=== PATIENT | male | born 1960 | race Caucasian/White ===

== ENCOUNTER → 2024-01-24 11:24 | Outpatient (CLI) | payer OTHER, SELFPAY ==
--- NOTE | 2024-01-24 11:35 | DI.RAD.S_ITS ---
PROCEDURE: XR HIP W PEL IF DONE RT 2V INDICATIONS: ARTHRITIS TECHNIQUE: AP pelvis with lateral view(s) of the right hip(s). COMPARISON: None. FINDINGS: Bones: No fractures or dislocations. Pelvic ring appears intact. No suspicious bony lesions. Well-aligned, intact arthroplasty without hardware complication. Soft tissues: The visualized bowel gas pattern is normal. No suspicious soft tissue calcifications. IMPRESSION: Well-aligned, intact right total hip arthroplasty without hardware complication. Dictated by: Sheldon Scott M.D. on 01/24/2024 at 14:34 Approved by: Sheldon Scott M.D. on 01/24/2024 at 14:35
== END ==
PROVIDERS: Referring Provider Chiropractor; Visit Provider Chiropractor
DX: M13.80 Other specified arthritis, unspecified site (principal); Z96.641 Presence of right artificial hip joint
CPT/HCPCS: 73502